=== PATIENT | female | born 1975 | race Two or more races ===

== ENCOUNTER → 2017-04-14 | Outpatient (CLI) | payer OTHER ==
[2017-04-17 11:20] LABS: HEPATITIS B SURFACE ANTIBODY 24.6 mIU/mL
== END ==
LOC: PLAB 08:56
DX: T14.8 Other injury of unspecified body region (principal); W46.1XXA Contact with contaminated hypodermic needle, initial encounter; Y92.69 Other specified industrial and construction area as the place of occurrence of the external cause
CPT/HCPCS: 36415; 86317; 86703; 86803; 87340